=== PATIENT | male | born 1935 | race Caucasian/White ===

== ENCOUNTER 2018-04-23 17:30 | Emergency (ER) | payer MEDICARE, OTHER ==
[~2018-04-23] VITALS: Ht 170.2 cm; Wt 70.2 kg
[~2018-04-23 17:30] MED LIST: ANTIBIOTICS PO; ATOR10TA PO; CARV-39 PO; CEPH-376 PO; DOXY100C15 PO; ESOM40CA PO; LISI-170 PO; OXYB15TA4 PO; SAW450CA7 PO; SILD50TA PO; TAMS0.4C2 PO; VIT1CAPS11 PO
--- NOTE | 2018-04-23 18:02 | NUR ---
pt to XR
--- NOTE | 2018-04-23 18:06 | NUR ---
pt returned from XR
[2018-04-23] MEDS ORDERED: ALBUTEROL/IPRATROPIUM 2.5MG/0.5MG, 3 ML ONE (18:25)
[2018-04-23] MEDS ORDERED: ALBUTEROL/IPRATROPIUM 2.5MG/0.5MG, 3 ML NPPB ONE (18:30)
[2018-04-23 18:40] LABS: BASOPHILS # (AUTO) 0.02 x10^3/uL (0-0.1); BASOPHILS % (AUTO) 0 % (0-1); EOSINOPHILS % (AUTO) 2 % (1-7); LYMPHOCYTES # (AUTO) 0.71 x10^3/uL (1-3.4); LYMPHOCYTES % (AUTO) 15 % (22-44); MD NO; MEAN CORPUSCULAR HEMOGLOBIN 31.5 pg (27.5-34.5); MEAN CORPUSCULAR HGB CONC 33.8 g/dL (33.2-36.2); MEAN PLATELET VOLUME 9.7 fL (7.4-10.4); MONOCYTES % (AUTO) 13 % (2-9); NEUTROPHILS # (AUTO) 3.36 x10^3/uL (1.8-6.8); NEUTROPHILS % (AUTO) 70 % (42-75); PLATELET COUNT 145 x10^3/uL (130-400); RED BLOOD COUNT 4.01 x10^6/uL (4.38-5.82); RED CELL DISTRIBUTION WIDTH 13.7 % (9.4-14.8)
[2018-04-23 18:49] LABS: ALBUMIN 3.1 g/dL (3.4-5.0); ANION GAP 6 mmol/L (5-15); CALCIUM 8.1 mg/dL (8.5-10.1); CHLORIDE 113 mmol/L (98-107); CREATININE 1.66 mg/dL (0.7-1.3)
--- NOTE | 2018-04-23 18:51 | NUR ---
report given to Ariadna
--- NOTE | 2018-04-23 18:53 | NUR ---
REPORT FROM DENICE DUTTA. PT WAITING FOR RT. CALL LIGHT IN REACH
[2018-04-23 19:13] VITALS: BP 130/53
--- NOTE | 2018-04-23 19:51 | NUR ---
Patient given discharge instructions and they have confirmed that they understand the instructions. Patient ambulatory with steady gait.
== END 2018-04-23 19:52 | disposition home or self-care (01) ==
LOC: ED 19:00
DX: J98.01 Acute bronchospasm (principal); J01.80 Other acute sinusitis; I10 Essential (primary) hypertension; Z87.891 Personal history of nicotine dependence; Z95.0 Presence of cardiac pacemaker
CPT/HCPCS: 36415; 71046; 80048; 82040; 85025; 94640; 99284; J7620

== ENCOUNTER 2019-01-05 05:34 | Inpatient (IN) | payer MEDICARE, OTHER ==
[~2019-01-05] VITALS: Ht 170.2 cm; Wt 60.1 kg
[2019-01-05] MEDS ORDERED: LACTATED RINGERS 1,000 ML IV SCH (06:21)
[2019-01-05 06:24] VITALS: BP 112/57
[2019-01-05 08:22] LABS: BASOPHILS # (AUTO) 0.01 x10^3/uL (0-0.1); BASOPHILS % (AUTO) 0 % (0-1); EOSINOPHILS # (AUTO) 0.05 x10^3/uL (0-0.4); EOSINOPHILS % (AUTO) 1 % (1-7); LYMPHOCYTES # (AUTO) 0.44 x10^3/uL (1-3.4); LYMPHOCYTES % (AUTO) 6 % (22-44); MD NO; MEAN CORPUSCULAR HEMOGLOBIN 29.9 pg (27.5-34.5); MEAN CORPUSCULAR HGB CONC 32.9 g/dL (33.2-36.2); MEAN CORPUSCULAR VOLUME 90.8 fL (81-97); MEAN PLATELET VOLUME 9.4 fL (7.4-10.4); MONOCYTES # (AUTO) 0.52 x10^3/uL (0.2-0.8); MONOCYTES % (AUTO) 7 % (2-9); NEUTROPHILS # (AUTO) 6.53 x10^3/uL (1.8-6.8); NEUTROPHILS % (AUTO) 87 % (42-75); PLATELET COUNT 188 x10^3/uL (130-400); RED BLOOD COUNT 4.27 x10^6/uL (4.38-5.82); RED CELL DISTRIBUTION WIDTH 17.5 % (9.4-14.8)
[2019-01-05 08:35] LABS: ALANINE AMINOTRANSFERASE 12 U/L (12-78); ALBUMIN 2.8 g/dL (3.4-5.0); ANION GAP 7 mmol/L (5-15); CALCIUM 8.6 mg/dL (8.5-10.1); CHLORIDE 112 mmol/L (98-107)
[2019-01-05 08:38] LABS: ALKALINE PHOSPHATASE 82 U/L (45-117); BILIRUBIN,TOTAL 1.1 mg/dL (0.2-1.0); CREATININE 0.94 mg/dL (0.7-1.3)
[2019-01-05] MEDS ORDERED: hydrALAzine 20 MG/ML, 1ML IVPush PRN (09:00)
[2019-01-05] MEDS ORDERED: CARVEDILOL 25 MG TABLET PO SCH (09:00)
[2019-01-05] MEDS ORDERED: GUAIFENESIN/DM 200-20MG, 10ML UDC PO PRN (09:00)
[2019-01-05] MEDS ORDERED: GUAIFENESIN/COD200MG-20MG/10ML LIQUID PO PRN (09:00)
[2019-01-05] MEDS: TEMPLATE NON-FORMULARY MED. (Esomeprazole Magnesium** (Nexium**) 40 MG) PO SCH (09:00)
[2019-01-05] MEDS ORDERED: LABETALOL 5MG/ML, 20ML IVPush PRN (09:00)
[2019-01-05] MEDS ORDERED: LISINOPRIL 20 MG TABLET PO SCH (09:00)
[2019-01-05] MEDS: OXYBUTYNIN CHLORIDE 15 MG PO SCH (09:00)
[2019-01-05] MEDS ORDERED: ACETAMINOPHEN 325 MG TABLET PO PRN (09:00)
[2019-01-05 09:37] LABS: TROPONIN I < 0.015 ng/mL (0.000-0.045)
[2019-01-05 09:50] LABS: D-DIMER 1.97 ug/mlFEU (0.00-0.52); INTERNATIONAL NORMALIZED RATIO 1.15 (0.93-1.1)
[2019-01-05] MEDS: GUAIFENESIN 200 MG TABLET PO SCH ×3 (11:08→20:54)
[2019-01-05 14:51] VITALS: BP 104/57
[2019-01-05 14:58] VITALS: BP 147/81
[2019-01-05] MEDS ORDERED: OMNIPAQUE 350 MG/ML, 100ML BOTTLE ONE (15:38)
[2019-01-05 15:49] LABS: TROPONIN I < 0.015 ng/mL (0.000-0.045)
[2019-01-05] MEDS: FUROSEMIDE 40 MG/4 ML IV SCH (16:48)
[2019-01-05 19:55] VITALS: BP 109/56
[2019-01-05] MEDS: ALBUTEROL/IPRATROPIUM 2.5MG/0.5MG, 3 ML NPPB SCH (20:20)
[2019-01-05] MEDS: AMOXICILLIN/CLAV 875-125MG TABLET PO SCH (20:54)
[2019-01-05] MEDS: TAMSULOSIN 0.4 MG CAP.ER.24H PO SCH (20:54)
[2019-01-05] MEDS: ATORVASTATIN 10 MG TABLET PO SCH (20:54)
[2019-01-05] MEDS: CARVEDILOL 12.5 MG TABLET PO SCH (20:54)
[2019-01-05] MEDS: DOXYCYCLINE 100MG TABLET PO SCH (20:55)
[2019-01-05] MEDS: BUDESONIDE 0.5 MG/2 ML INHA NPPB SCH (21:00)
[2019-01-05 21:18] LABS: TROPONIN I < 0.015 ng/mL (0.000-0.045)
[2019-01-06 01:14] VITALS: BP 120/68
[2019-01-06] MEDS: GUAIFENESIN 200 MG TABLET PO SCH ×4 (05:29→21:35)
[2019-01-06 05:33] LABS: BASOPHILS # (AUTO) 0.02 x10^3/uL (0-0.1); BASOPHILS % (AUTO) 0 % (0-1); EOSINOPHILS # (AUTO) 0.17 x10^3/uL (0-0.4); EOSINOPHILS % (AUTO) 3 % (1-7); LYMPHOCYTES # (AUTO) 0.55 x10^3/uL (1-3.4); LYMPHOCYTES % (AUTO) 8 % (22-44); MD NO; MEAN CORPUSCULAR HEMOGLOBIN 29.5 pg (27.5-34.5); MEAN CORPUSCULAR HGB CONC 32.1 g/dL (33.2-36.2); MEAN CORPUSCULAR VOLUME 92.1 fL (81-97); MEAN PLATELET VOLUME 9.5 fL (7.4-10.4); MONOCYTES # (AUTO) 0.57 x10^3/uL (0.2-0.8); MONOCYTES % (AUTO) 9 % (2-9); NEUTROPHILS # (AUTO) 5.37 x10^3/uL (1.8-6.8); NEUTROPHILS % (AUTO) 80 % (42-75); PLATELET COUNT 178 x10^3/uL (130-400); RED BLOOD COUNT 3.97 x10^6/uL (4.38-5.82); RED CELL DISTRIBUTION WIDTH 17.4 % (9.4-14.8)
[2019-01-06 05:42] LABS: CHLORIDE 109 mmol/L (98-107)
[2019-01-06 05:51] LABS: ALANINE AMINOTRANSFERASE 11 U/L (12-78); ALBUMIN 2.5 g/dL (3.4-5.0); ALKALINE PHOSPHATASE 73 U/L (45-117); ANION GAP 5 mmol/L (5-15); BILIRUBIN,TOTAL 0.8 mg/dL (0.2-1.0); CALCIUM 8.4 mg/dL (8.5-10.1); CREATININE 1.02 mg/dL (0.7-1.3); TOTAL PROTEIN 6.3 g/dL (6.4-8.2)
[2019-01-06 07:02] VITALS: BP 121/71
[2019-01-06 08:26] LABS: CHOL/HDL RATIO 3.4
[2019-01-06] MEDS: OXYBUTYNIN CHLORIDE 15 MG PO SCH (09:00)
[2019-01-06] MEDS: TEMPLATE NON-FORMULARY MED. (Esomeprazole Magnesium** (Nexium**) 40 MG) PO SCH (09:00)
[2019-01-06] MEDS: LISINOPRIL 5 MG TABLET PO SCH (09:08)
[2019-01-06] MEDS: CARVEDILOL 12.5 MG TABLET PO SCH ×2 (09:08→21:35)
[2019-01-06] MEDS: FUROSEMIDE 40 MG/4 ML IV SCH ×2 (09:08→16:38)
[2019-01-06] MEDS: AMOXICILLIN/CLAV 875-125MG TABLET PO SCH ×2 (09:08→21:35)
[2019-01-06] MEDS: SPIRONOLACTONE 25 MG TABLET PO SCH (09:08)
[2019-01-06] MEDS: DOXYCYCLINE 100MG TABLET PO SCH ×2 (09:09→21:35)
[2019-01-06] MEDS: FINASTERIDE 5 MG TABLET PO SCH (09:10)
[2019-01-06] MEDS: BUDESONIDE 0.5 MG/2 ML INHA NPPB SCH ×2 (09:45→21:15)
[2019-01-06] MEDS: ALBUTEROL/IPRATROPIUM 2.5MG/0.5MG, 3 ML NPPB SCH ×2 (09:45→21:15)
[2019-01-06] MEDS: RIVAROXABAN 20 MG TABLET PO SCH (12:43)
[2019-01-06 15:58] VITALS: BP 103/66
[2019-01-06 18:56] VITALS: BP 118/62
[2019-01-06] MEDS: ATORVASTATIN 10 MG TABLET PO SCH (21:00)
[2019-01-06] MEDS: TAMSULOSIN 0.4 MG CAP.ER.24H PO SCH (21:35)
[2019-01-06] MEDS: ATORVASTATIN 40 MG TABLET PO SCH (21:35)
[2019-01-07 00:37] VITALS: BP 113/78
[2019-01-07] MEDS: GUAIFENESIN 200 MG TABLET PO SCH ×4 (05:27→21:07)
[2019-01-07] MEDS: RIVAROXABAN 20 MG TABLET PO SCH (05:28)
[2019-01-07 06:04] LABS: ALBUMIN 2.5 g/dL (3.4-5.0); ANION GAP 7 mmol/L (5-15); CALCIUM 8.5 mg/dL (8.5-10.1); CHLORIDE 108 mmol/L (98-107)
[2019-01-07 06:08] LABS: ALANINE AMINOTRANSFERASE 10 U/L (12-78); ALKALINE PHOSPHATASE 76 U/L (45-117); BILIRUBIN,TOTAL 0.9 mg/dL (0.2-1.0); CREATININE 0.84 mg/dL (0.7-1.3); TOTAL PROTEIN 6.4 g/dL (6.4-8.2)
[2019-01-07 08:25] VITALS: BP 135/73
[2019-01-07] MEDS: AMOXICILLIN/CLAV 875-125MG TABLET PO SCH ×2 (08:38→21:07)
[2019-01-07] MEDS: CARVEDILOL 12.5 MG TABLET PO SCH ×2 (08:38→21:07)
[2019-01-07] MEDS: DOXYCYCLINE 100MG TABLET PO SCH ×2 (08:38→21:07)
[2019-01-07] MEDS: POTASSIUM CHLORIDE 20 MEQ TAB.ER.PRT PO SCH ×2 (08:38→17:22)
[2019-01-07] MEDS: FUROSEMIDE 40 MG/4 ML IV SCH (08:38)
[2019-01-07] MEDS: LISINOPRIL 5 MG TABLET PO SCH (08:38)
[2019-01-07] MEDS: FINASTERIDE 5 MG TABLET PO SCH (08:39)
[2019-01-07] MEDS: SPIRONOLACTONE 25 MG TABLET PO SCH (08:39)
[2019-01-07] MEDS: TEMPLATE NON-FORMULARY MED. (Esomeprazole Magnesium** (Nexium**) 40 MG) PO SCH (09:00)
[2019-01-07] MEDS: OXYBUTYNIN CHLORIDE 15 MG PO SCH (09:00)
[2019-01-07] MEDS: BUDESONIDE 0.5 MG/2 ML INHA NPPB SCH ×2 (09:48→20:44)
[2019-01-07] MEDS: ALBUTEROL/IPRATROPIUM 2.5MG/0.5MG, 3 ML NPPB SCH ×2 (09:48→20:44)
[2019-01-07 13:20] VITALS: BP 101/49
[2019-01-07] MEDS ORDERED: FUROSEMIDE 40 MG/4 ML IV SCH (14:00)
[2019-01-07 19:16] VITALS: BP 102/60
[2019-01-07] MEDS: ATORVASTATIN 10 MG TABLET PO SCH (21:07)
[2019-01-07] MEDS: TAMSULOSIN 0.4 MG CAP.ER.24H PO SCH (21:07)
[2019-01-07] MEDS: ATORVASTATIN 40 MG TABLET PO SCH (21:07)
[2019-01-08 01:09] VITALS: BP 128/79
[2019-01-08] MEDS: GUAIFENESIN 200 MG TABLET PO SCH ×2 (05:02→11:00)
[2019-01-08] MEDS: RIVAROXABAN 20 MG TABLET PO SCH (05:02)
[2019-01-08 06:02] LABS: ALBUMIN 2.6 g/dL (3.4-5.0); ANION GAP 5 mmol/L (5-15); CALCIUM 8.4 mg/dL (8.5-10.1); CHLORIDE 107 mmol/L (98-107)
[2019-01-08 06:06] LABS: ALANINE AMINOTRANSFERASE 9 U/L (12-78); ALKALINE PHOSPHATASE 78 U/L (45-117); BILIRUBIN,TOTAL 0.8 mg/dL (0.2-1.0); CREATININE 0.99 mg/dL (0.7-1.3); TOTAL PROTEIN 6.7 g/dL (6.4-8.2)
[2019-01-08 07:08] VITALS: BP 127/55
[2019-01-08] MEDS: AMOXICILLIN/CLAV 875-125MG TABLET PO SCH (08:10)
[2019-01-08] MEDS: CARVEDILOL 12.5 MG TABLET PO SCH (08:10)
[2019-01-08] MEDS: LISINOPRIL 5 MG TABLET PO SCH (08:11)
[2019-01-08] MEDS: SPIRONOLACTONE 25 MG TABLET PO SCH (08:11)
[2019-01-08] MEDS: POTASSIUM CHLORIDE 10 MEQ TABLET.ER PO SCH ×2 (08:11→09:00)
[2019-01-08] MEDS: DOXYCYCLINE 100MG TABLET PO SCH (08:11)
[2019-01-08] MEDS: OXYBUTYNIN CHLORIDE 15 MG PO SCH (08:16)
[2019-01-08] MEDS: TEMPLATE NON-FORMULARY MED. (Esomeprazole Magnesium** (Nexium**) 40 MG) PO SCH (08:16)
[2019-01-08] MEDS: FINASTERIDE 5 MG TABLET PO SCH (09:00)
[2019-01-08] MEDS ORDERED: FUROSEMIDE 40 MG TABLET PO SCH (09:00)
[2019-01-08] MEDS: ALBUTEROL/IPRATROPIUM 2.5MG/0.5MG, 3 ML NPPB SCH (09:39)
[2019-01-08] MEDS: BUDESONIDE 0.5 MG/2 ML INHA NPPB SCH (09:39)
[2019-01-08 12:58] VITALS: BP 124/59
[2019-01-08] MEDS ORDERED: DOXY100T PO (13:33)
[2019-01-08] MEDS ORDERED: RIVA20TA PO (13:33)
[2019-01-08] MEDS ORDERED: FURO40TA6 PO (13:33)
[2019-01-08] MEDS ORDERED: ATOR40TA78 PO (13:33)
[2019-01-08] MEDS ORDERED: POTA10TA5 PO (13:33)
[2019-01-08] MEDS ORDERED: CARV12.52 PO (13:33)
[2019-01-08] MEDS ORDERED: LISI5TAB7 PO (13:33)
[2019-01-08] MEDS ORDERED: SPIR25TA PO (13:33)
[2019-01-08] MEDS ORDERED: GUAI200T37 PO (13:33)
[2019-01-08] MEDS ORDERED: AMOX1TAB12 PO (13:33)
== END 2019-01-08 18:17 | disposition home or self-care (01) | DRG 291 ==
LOC: OUT 05:34 → ORIP 08:40 → 4EST 09:48
PROVIDERS: ADMIT Urology; ATTEND Urology
DX: I11.0 Hypertensive heart disease with heart failure (principal); J15.211 Pneumonia due to Methicillin susceptible Staphylococcus aureus; J96.01 Acute respiratory failure with hypoxia; I33.0 Acute and subacute infective endocarditis; T82.867A Thrombosis due to cardiac prosthetic devices, implants and grafts, initial encounter; E46 Unspecified protein-calorie malnutrition; I50.23 Acute on chronic systolic (congestive) heart failure; I42.9 Cardiomyopathy, unspecified; Z88.6 Allergy status to analgesic agent; D64.9 Anemia, unspecified; E78.5 Hyperlipidemia, unspecified; I48.91 Unspecified atrial fibrillation; J20.9 Acute bronchitis, unspecified; K21.9 Gastro-esophageal reflux disease without esophagitis; N40.0 Benign prostatic hyperplasia without lower urinary tract symptoms; Z53.9 Procedure and treatment not carried out, unspecified reason; Z87.442 Personal history of urinary calculi; Z87.891 Personal history of nicotine dependence; Z95.810 Presence of automatic (implantable) cardiac defibrillator; Z68.20 Body mass index [BMI] 20.0-20.9, adult; Y83.8 Other surgical procedures as the cause of abnormal reaction of the patient, or of later complication, without mention of misadventure at the time of the procedure; Y92.89 Other specified places as the place of occurrence of the external cause
CPT/HCPCS: 36415; 71045; 71275; 80053; 80061; 83735; 83880; 84484; 85025; 85379; 85610; 85730; 87040; 87070; 87077; 87186; 87205; 93005; 93306; 94640; G0378; J1940; J7620; J7626; Q9967

== ENCOUNTER 2019-05-29 12:42 | Observation (INO) | payer MEDICARE ==
[~2019-05-29] VITALS: Ht 170.2 cm; Wt 63.0 kg
[~2019-05-29 12:42] MED LIST changes: +ALBU18HF INH; +ALBU2.5V11 NEB; +AMOX1TAB12 PO; +ATOR40TA PO; +ATOR40TA78 PO; +CARV12.52 PO; +CARV6.25 PO; +CEFD300C37 PO; +DOXY100T PO; +FLUC200T PO; +FURO-93 PO; +FURO40TA6 PO; +GUAI200T37 PO; +L.AC1CAP4 PO; +LISI5TAB7 PO; +MULT1TAB60 PO; +POTA10TA5 PO; +RIVA20TA PO; +SPIR25TA PO; +SPIR25TA5 PO; +mucinex PO
[2019-05-29] MEDS ORDERED: LACTATED RINGERS 1,000 ML IV SCH ×2 (13:31→20:00)
[2019-05-29 14:02] VITALS: BP 113/57
[2019-05-29] MEDS ORDERED: MIDAZOLAM 1 MG/ML, 2ML ONE (15:18)
[2019-05-29] MEDS ORDERED: FENTANYL PF 100 MCG/2ML ONE (15:18)
[2019-05-29] MEDS ORDERED: CEFAZOLIN 1,000 MG ONE (16:04)
[2019-05-29] MEDS ORDERED: PHENYLEPHRINE 10 MG/ML ONE (16:57)
[2019-05-29 19:37] VITALS: BP 104/45
[2019-05-29] MEDS ORDERED: ONDANSETRON 2MG/ML, 2ML IV PRN (20:00)
[2019-05-29] MEDS ORDERED: ALBUTEROL SULFATE 2.5 MG/3 ML NPPB PRN (20:30)
[2019-05-29] MEDS: ATORVASTATIN 40 MG TABLET PO SCH (21:21)
[2019-05-29] MEDS: GUAIFENESIN ER 600 MG TABLET PO SCH (21:21)
[2019-05-29] MEDS: TAMSULOSIN 0.4 MG CAP.ER.24H PO SCH (21:21)
[2019-05-30 00:03] VITALS: BP 90/47
[2019-05-30] MEDS ORDERED: LACTATED RINGERS 1,000 ML IV SCH (03:00)
[2019-05-30 04:18] VITALS: BP 97/54
[2019-05-30 05:47] LABS: ANION GAP 5 mmol/L (5-15); CALCIUM 8.3 mg/dL (8.5-10.1); CHLORIDE 110 mmol/L (98-107); CREATININE 1.18 mg/dL (0.7-1.3)
[2019-05-30] MEDS: CARVEDILOL 6.25 MG TABLET PO SCH ×2 (06:41→18:18)
[2019-05-30 08:49] VITALS: BP 98/48
[2019-05-30] MEDS: MULTIVITAMIN 1 TABLET PO SCH ×2 (08:56)
[2019-05-30] MEDS: GUAIFENESIN ER 600 MG TABLET PO SCH ×2 (08:56→23:37)
[2019-05-30] MEDS: LACTOBACILLUS CHEW TABLET PO SCH (08:56)
[2019-05-30] MEDS: POTASSIUM CHLORIDE 10 MEQ TABLET.ER PO SCH (08:56)
[2019-05-30] MEDS: LISINOPRIL 5 MG TABLET PO SCH (09:00)
[2019-05-30] MEDS: SPIRONOLACTONE 25 MG TABLET PO SCH (09:00)
[2019-05-30] MEDS: SULFAMETH./TRIMETHOPRIM DS 800MG/160MG TABLET PO SCH ×2 (12:33→23:37)
[2019-05-30 12:34] VITALS: BP 95/58
[2019-05-30] MEDS: FUROSEMIDE 20 MG TABLET PO SCH (12:45)
[2019-05-30 18:17] VITALS: BP 122/49
[2019-05-30 19:06] VITALS: BP 111/57
[2019-05-30] MEDS: ATORVASTATIN 40 MG TABLET PO SCH (23:36)
[2019-05-30] MEDS: TAMSULOSIN 0.4 MG CAP.ER.24H PO SCH (23:37)
[2019-05-31 02:29] VITALS: BP 86/50
[2019-05-31] MEDS: CARVEDILOL 6.25 MG TABLET PO SCH (06:38)
[2019-05-31 06:45] VITALS: BP 107/44
[2019-05-31] MEDS: MULTIVITAMIN 1 TABLET PO SCH ×2 (07:11→09:07)
[2019-05-31 08:56] VITALS: BP 100/55
[2019-05-31] MEDS: LISINOPRIL 5 MG TABLET PO SCH (09:00)
[2019-05-31] MEDS: LACTOBACILLUS CHEW TABLET PO SCH (09:04)
[2019-05-31] MEDS: SULFAMETH./TRIMETHOPRIM DS 800MG/160MG TABLET PO SCH (09:04)
[2019-05-31] MEDS: GUAIFENESIN ER 600 MG TABLET PO SCH (09:05)
[2019-05-31] MEDS: FUROSEMIDE 20 MG TABLET PO SCH (09:06)
[2019-05-31] MEDS: POTASSIUM CHLORIDE 10 MEQ TABLET.ER PO SCH (09:06)
[2019-05-31] MEDS: SPIRONOLACTONE 25 MG TABLET PO SCH (09:07)
[2019-05-31] MEDS ORDERED: SULF1TAB24 PO (12:03)
[2019-05-31 12:31] VITALS: BP 123/41
== END 2019-05-31 14:14 | disposition home or self-care (01) ==
LOC: OUT 12:42 → 4NE 18:47 → OUT 18:53 → 4NE 18:53 → INTOOBSV 18:53 → DCLOUNGE 05-31 13:47
PROVIDERS: ADMIT Urology; ATTEND Urology
DX: N40.1 Benign prostatic hyperplasia with lower urinary tract symptoms (principal); N02.9 Recurrent and persistent hematuria with unspecified morphologic changes; R33.9 Retention of urine, unspecified; J44.9 Chronic obstructive pulmonary disease, unspecified; I50.9 Heart failure, unspecified; N32.89 Other specified disorders of bladder; E78.00 Pure hypercholesterolemia, unspecified; I11.0 Hypertensive heart disease with heart failure; I48.91 Unspecified atrial fibrillation; K21.9 Gastro-esophageal reflux disease without esophagitis
CPT/HCPCS: 36415; 52601; 80048; 85014; 85018; 88305; 93005; 94640; G0378; J0690; J2250; J2370; J3010; J7120; J7613